=== PATIENT | female | born 1965 | race Caucasian/White ===

== ENCOUNTER 2022-04-09 17:06 | Emergency (ER) | payer BC, SELFPAY ==
--- NOTE | ~2022-04-09 | XR_ITS ---
EXAMINATION: XR HAND, LEFT CLINICAL INFORMATION: Head injury. Pain along the left thumb. COMPARISON: None TECHNIQUE: 3 views of the left hand. FINDINGS: The bones and soft tissues are normal. No fracture. Alignment is anatomic. Joint spaces are maintained. No erosions or soft tissue calcifications. XR/XR hand LT min 3V IMPRESSION: Unremarkable left hand.
[2022-04-09 17:14] VITALS: BP 134/76; PULSE 70; RESP 20; TEMP 36.9; O2SAT 98; BMI 25.7
--- NOTE | 2022-04-09 17:45 | ED.EXTPRO ---
HPI - Extremity Problem General Chief complaint: Extremity Injury, Upper Stated complaint: L thumb injury Time Seen by Provider: 04/09/22 17:45 Source: patient Mode of arrival: ambulatory Limitations: no limitations History of Present Illness HPI Narrative: Patient is a 56 year old female presenting to the emergency department today with a left thumb injury. Patient states that she fell in the ocean yesterday and caught herself with her left hand, hurting her left thumb. Patient states that she is having difficulty touching her finger tips with her thumb. Patient denies any dizziness, lightheadedness, abdominal pain, nausea, vomiting, fever, chills, blurry vision, double vision, loss of vision, chest pain, difficulty breathing, shortness of breath, back pain, night sweats, pain with urination, increased urinary frequency, increased urinary urgency, blood in her urine or stool, syncope or a near syncopal episode, recent trauma or falls, bowel incontinence, bladder incontinence, bowel retention, bladder retention, or any other complaints at this time. MD Complaint: extremity pain Onset (ago): day(s) (1) Pain Consistency: constant Location: left and upper extremity (thumb) Severity scale (1-10): 1 Quality: dull Radiation: none Relieving factors: nothing Exacerbating factors: range of motion Associated symptoms: denies other symptoms Related Data Allergies Allergy/AdvReac Type Severity Reaction Status Date / Time No Known Allergies Allergy Verified 04/09/22 17:16 Review of Systems Constitutional: Constitutional: Reports no additional constitutional complaints, Denies chills, Denies fever(s) and Denies night sweats Eyes: Eyes: Reports no additional eye complaints, Denies blurry vision, Denies change in vision, Denies diplopia, Denies eye discharge, Denies loss of vision and Denies eye pain ENT: Denies dizziness Cardiovascular: Cardiovascular: Reports no additional cardiovascular complaints, Denies chest pain, Denies lightheadedness, Denies Loss of Consciousness and Denies dyspnea Respiratory: Respiratory: Reports no additional respiratory complaints and Denies dyspnea Gastrointestinal: Gastrointestinal: Reports no additional gastrointestinal complaints, Denies abdominal pain, Denies melena, Denies hematochezia, Denies change in bowel habits and Denies change in stool character Genitourinary: Genitourinary: Denies hematuria, Denies urinary frequency, Denies dysuria, Denies urinary incontinence, Denies urinary hesitancy and Denies urinary urgency Musculoskeletal: Musculoskeletal: Reports no additional musculoskeletal complaints, Denies numbness and Denies tingling Comments: left thumb pain Neurologic: Denies dizziness, Denies loss of vision, Denies numbness and Denies tingling Psychiatric: Psychiatric: Reports no additional psychiatric complaints Endocrine: Endocrine: Reports no additional endocrine complaints Hematologic/Lymphatic: Hematologic/Lymphatic: Reports no additional hematologic/lymphatic complaints Allergic/Immunologic: Allergic/Immunologic: Reports no additional allergic/immunologic complaints [facility] Past Medical History Attestation statement: The following information was validated with the patient. Source: old records reviewed Social History Social History Advance Directives: No Advance Directives Information Provided: No Physical Exam Vital Signs: Vital Signs: Last Vital Signs Temp 98.4 F 04/09/22 17:14 Pulse 70 04/09/22 17:14 Resp 20 04/09/22 17:14 BP 134/76 04/09/22 17:14 Pulse Ox 98 04/09/22 17:14 O2 Del Method 04/09/22 17:14 BMI result Body Mass Index 25.7 Const: General: cooperative, no acute distress, alert and awake Nutritional Appearance: well nourished Orientation/consciousness: patient oriented x3 Limitations: no limitations HEENT: Head: Yes normal to inspection and Yes atraumatic Ears: hearing grossly normal bilaterally and external ears normal General nose exam: Normal external nose present, no nasal discharge noted and no epistaxis Face and sinus: Yes normal facial exam, No abrasion and No laceration Mouth: Normal oral and palatal mucosa present, no drooling and no muffled voice Eyes: General: appearance normal, both eyes and all related structures Periorbital: periorbital findings normal Eyelids: Yes eyelids normal Conjunctivae: conjunctivae normal Pupils: Equal, round and reactive pupils present EOM: EOMs intact bilaterally Neck: Neck: Yes normal visual inspection, Yes full ROM and Yes no lymphadenopathy Chest: Chest palpation & inspection: normal inspection of the chest Resp: Effort & Inspection: normal respiratory effort and able to speak in complete sentences Auscultation: clear to auscultation bilaterally Cardio: Rate: regular rate Rhythm: regular rhythm GI: Inspection: Yes normal to inspection Neuro: General: patient oriented x3 and moves all extremities Cranial nerves: Yes Equal, round and reactive pupils present Cognition (Neuro): normal cognition Motor exam (neuro): 5/5 motor strength present throughout Sensory Exam: Normal double simultaneous stimulation for sensation Coordination: [id number] test normal Extrem: Other: patient is unable to touch left thumb to left pinky finger tip or left ring finger tip General: Yes normal to inspection and Yes capillary refill normal Psych: Appearance: grossly normal Mental Status: mental status grossly normal Affect: normal affect Attitude: cooperative Thought process: Normal thought process present Thought content: Normal thought content present Insight: Good insight present (Psych) MDM - Extremity (Nontraumatic) MDM Narrative Medical decision making narrative: Patient is a 56 year old female presenting to the emergency department today with left thumb pain. Patient's physical exam showed an inability to touch her left thumb tip to the left pinky finger tip or left ring finger tip. Patient's left hand x-ray showed no acute process. I explained my physical exam findings as well as all test results to the patient. I answered all questions asked by the patient. Patient's thumb was placed in a thumb spica splint, without incident. Patient's PMS was in tact prior to and after splint placement. I stressed the importance of the patient taking her medication as prescribed. I stressed the importance of the patient following up with her primary care provider and an orthopedist. I stressed the importance of the patient returning to the emergency department immediately if her symptoms were to worsen or if she were to develop any dizziness, shortness of breath, difficulty breathing, chest pain, blurry vision, loss of vision, nausea, vomiting, abdominal pain, fever, chills, back pain, or any other complaints. Patient verbalized agreement and understanding with this treatment plan and discharge. Differential Diagnosis Differential diagnosis: Unlikely cellulitis (left thumb pain, UCL injury) Medical Records Attestation: I reviewed the patient's medical records. Imaging Data Left hand x-ray: Attestation: I personally reviewed and interpreted this imaging study as follows: My impression: No acute process. Radiologist's impression: EXAMINATION: XR HAND, LEFT CLINICAL INFORMATION: Head injury. Pain along the left thumb.? COMPARISON: None? TECHNIQUE: 3 views of the left hand. FINDINGS: The bones and soft tissues are normal. No fracture. Alignment is anatomic. Joint spaces are maintained. No erosions or soft tissue calcifications.? XR/XR hand LT min 3V IMPRESSION: Unremarkable left hand. Dictated By: Hector Da Silva MD Signed By: Electronically signed by Hector Da Silva MD 04/09/22 6530 Procedures Orthopedic Splinting/Casting Injury #1: Side: left Upper Extremity Immobilizer: thumb spica Discharge Plan Discharge Clinical Impression: Ulnar collateral ligament sprain Patient Disposition: Home, Self-Care Instructions: Marcus'jorge Flores (ED) Additional Instructions: Follow up with your primary care provider and an orthopedic provider. Return to the emergency department immediately if your symptoms worsen or if you develop any dizziness, shortness of breath, difficulty breathing, chest pain, blurry vision, loss of vision, nausea, vomiting, abdominal pain, fever, chills, back pain, or any other complaints. Referrals: [facility] [place] [facility] [Provider Group] (Call to establish and follow up with a primary care provider. If you already have a primary care provider, please follow up with them. ) [facility] [place] [place] [facility], Denise [Provider Group] (Call to establish and follow up with a primary care provider. If you already have a primary care provider, please follow up with them. ) [facility] [place] [place] [facility],Luis Armando [Provider Group] (Call to establish and follow up with a primary care provider. If you already have a primary care provider, please follow up with them. ) [facility] [place] [facility] [Provider Group] (Call to establish and follow up with an orthopedic provider.) Interventions: ED Discharge Assessment Last Done: 04/09/22 18:22 Discharge Date/Time: 04/09/22 18:35 Print Language: Kiswahili
== END 2022-04-09 18:35 | disposition home or self-care (01) ==
PROVIDERS: Emergency Provider Emergency Medicine; PCP Internal Medicine
DX: S53.32XA Traumatic rupture of left ulnar collateral ligament, initial encounter (principal); W18.30XA Fall on same level, unspecified, initial encounter; Y93.9 Activity, unspecified; Y92.832 Beach as the place of occurrence of the external cause; Y99.9 Unspecified external cause status
CPT/HCPCS: 29130; 73130; 99283

== ENCOUNTER 2022-04-12 13:43 | Outpatient (REF) | payer BC, SELFPAY ==
--- NOTE | ~2022-04-12 | XR_ITS ---
EXAMINATION: XR HAND, LEFT CLINICAL INFORMATION: Left hand pain COMPARISON: April 09, 2022 TECHNIQUE: PA, lateral, and oblique views of the left hand. FINDINGS: There appears be some mild periarticular osteopenia present without erosive changes or joint space narrowing. No fracture or dislocation is evident. No soft tissue swelling is seen. XR/XR hand LT min 3V IMPRESSION: No significant bony abnormality of the left hand identified.
== END 2022-04-12 13:44 | disposition home or self-care (01) ==
LOC: HO.HOSX 13:43
PROVIDERS: Visit Provider Physician Assistant
DX: M79.642 Pain in left hand (principal)
CPT/HCPCS: 73130

== ENCOUNTER 2022-04-18 18:59 | Outpatient (REF) | payer BC, SELFPAY ==
--- NOTE | ~2022-04-18 | MR_ITS ---
EXAMINATION: MRI HAND WITHOUT CONTRAST, LEFT CLINICAL INFORMATION: Thumb injury. COMPARISON: None. TECHNIQUE: MRI without contrast is performed on the left hand/thumb on a 1.5 Tracey high-field MRI scanner. FINDINGS: Prominent soft tissue edema surrounds the 1st MCP joint with increased signal intensity and thickening along the radial and ulnar collateral ligaments. Probable high-grade sprain/partial tear of the ulnar collateral ligament at the insertion onto the metacarpal head, and more diffuse high-grade sprain/ill-defined tearing of the radial collateral ligament with reactive marrow edema or contusion of the metacarpal head. The proximal phalanx appears slightly subluxed volarly, and there is a trace joint effusion. Flexor and extensor tendons appear intact. MR/MR hand LT wo con IMPRESSION: High-grade sprains of the ulnar collateral and radial collateral ligaments of the 1st MCP joints as described. Ill-defined high-grade partial tearing of the ulnar collateral ligament is at the metacarpal attachment with no displacement.
== END 2022-04-18 19:00 | disposition home or self-care (01) ==
LOC: HO.MRI 18:59
PROVIDERS: Visit Provider Physician Assistant
DX: S63.642D Sprain of metacarpophalangeal joint of left thumb, subsequent encounter (principal)
CPT/HCPCS: 73218

== ENCOUNTER 2022-08-24 08:30 | Outpatient (RCR) | payer BC, SELFPAY ==
--- NOTE | 2022-07-20 14:05 | MHC.OT.EP ---
[address] [phone] Occupational Therapy Plan of Care Date of Evaluation: 07/20/22 Diagnosis: Stiffness of L thumb/wrist Assessment: Pt. is a 56 year old left hand dominant woman, who is s/p left Skier's thumb from a falling injury on 04/08/2022. She was treated non operatively in a short-arm thumb spica cast. The cast was removed on 05/26/2022. She has kept her hand in a Velcro thumb spica splint until approx 2 weeks ago and presents with wrist and thumb stiffness, joint pain, and decreased tie man strength. A 65% limitation is reported per the Quick DASH assessment. Aggie would benefit from skilled OT hand therapy to address noted barriers and assist in return to PLOF. Frequency and Duration: The patient will be seen 2x/wk for 4 weeks Short Term Goals: Pain free with BADL's/IADL's Improve L thumb AROM to WNL's Improve L wrist AROM to WNL's Increase L gross grasp strength by 15# Quick DASH <25% Printer Slotter Helper Goals: Same as above Treatment Plan: Therapeutic Exercise Therapeutic Activity Home Exercise Program Patient Education Edema Control ADL Training Ultrasound Paraffin Fluidotherapy MHP Cold Packs Joint Mobilization Soft Tissue Mobilization Kinesiotaping Electronically Signed By: Rosie Alfred MS OTR/L Please Sign and return to therapist. Thank you once again for your referral.
== END 2022-10-31 13:31 | disposition home or self-care (01) ==
LOC: HO.OT 08:30
PROVIDERS: Visit Provider Orthopaedic Surgery
DX: M25.642 Stiffness of left hand, not elsewhere classified (principal); S63.642A Sprain of metacarpophalangeal joint of left thumb, initial encounter
CPT/HCPCS: 97110; 97140; 97165